=== PATIENT | female | born 1985 | race Caucasian/White ===

== ENCOUNTER 2016-12-13 11:40 | Emergency (ER) | payer OTHER ==
[~2016-12-13] VITALS: Ht 162.6 cm; Wt 52.5 kg
[2016-12-13 12:02] VITALS: Ht 162.6 cm; Wt 52.5 kg
[2016-12-13] MEDS ORDERED: ONDANSETRON (ODT) 4 MG TAB ODT STA (13:00)
[2016-12-13 13:31] LABS: URINE BLOOD (Dip) POC Negative (NEGATIVE)
[2016-12-13] MEDS ORDERED: ONDA4TAB8 PO (13:59)
--- NOTE | 2016-12-13 15:07 | ERD ---
ER Documentation Chief Complaint Date/Time DATE: 12/13/16 TIME: 15:06 Chief Complaint Complains of nausea and vomiting since today after Etoh use last night HPI 1-year-old female complaining of vomiting and nausea after drinking last night. Patient states she is 3 shots. Denies abdominal pain. Has not taken medication today for symptoms. Denies dizziness. Does not normally drink heavily. Denies change in urination or bowel movement. Does not feel dizzy or have headaches. Denies medical problems. NKDA. Social history denies. ROS All systems reviewed and are negative except as per history of present illness. Medications Home Meds Active Scripts Ondansetron Hcl* (Zofran*) 4 Mg Tablet, 4 MG PO Q6H for NAUSEA AND/OR VOMITING, #30 TAB Prov:JAYCE SANTANA PA-C 12/13/16 Allergies Allergies: Coded Allergies: No Known Drug Allergy (Verified Allergy, Unknown, 09/07/13) Physical Exam Vitals Vital Signs Date Time Temp Pulse Resp B/P Pulse Ox O2 Delivery O2 Flow Rate FiO2 12/13/16 12:02 98.7 74 20 113/79 98 Physical Exam GENERAL: The patient is well-appearing, well-nourished, in no acute distress HEENT: Atraumatic. Conjunctivae are pink. Pupils equal, round, and reactive to light. There is no scleral icterus. Tympanic membranes clear bilaterally. Oropharynx clear. No nystagmus or photophobia. NECK: C-spine is soft and supple. There is no meningismus. There is no cervical lymphadenopathy. CHEST: Clear to auscultation bilaterally. There are no rales, wheezes or rhonchi. HEART: Regular rate and rhythm. No murmurs, clicks, rubs or gallops. No S3 or S4. ABDOMEN:Soft, nontender and nondistended. Good bowel sounds. No rebound or guarding. No gross peritonitis. No gross organomegaly or masses. No Ornelas sign or McBurney point tenderness. BACK: No midline or flank tenderness. Results 24 hrs Laboratory Tests Test 12/13/16 13:38 Bedside Urine pH (LAB) 7.5 Bedside Urine Protein (LAB) 1+ Bedside Urine Glucose (UA) Negative Bedside Urine Ketones (LAB) Negative Bedside Urine Blood Negative Bedside Urine Nitrite (LAB) Negative Bedside Urine Leukocyte Esterase (L Negative Current Medications Medications (Trade) Dose Ordered Sig/Gricelda Route PRN Reason Start Time Stop Time Status Last Admin Dose Admin Ondansetron HCl (Zofran Odt) 4 mg ONCE STAT ODT 12/13/16 13:00 12/13/16 13:01 DC 12/13/16 13:30 Procedures/MDM ER Course: He was given Zofran in the ED and had p.o. challenge. Patient passed p.o. challenge. Patient's urine showed no signs of infection and test was negative. MDM: Low suspicion for dehydration. Patient's vital signs are stable and patient is tolerating p.o.'s in the ED. I have low suspicion for acute abdomen. Patient's abdominal exam is non-concerning. I feel the patient's vomiting is likely secondary to alcohol consumption yesterday. Patient is told to refrain from consuming more alcohol and recommended to drink water patient was told if symptoms change or worsen to return to the ER. All questions answered time of discharge. Patient understood and complied with plan Departure Diagnosis: Primary Impression: Nausea and vomiting Condition: Stable Patient Instructions: Nausea and Vomiting-Adult Referrals: SPEEDY MARINELLI MD (PCP) Additional Instructions: FOLLOW UP WITH YOUR PRIMARY CARE PHYSICIAN TOMORROW.Return to this facility if you are not improving as expected. JAYCE SANTANA PA-C Dec 13, 2016 15:07
== END 2016-12-13 14:26 | disposition home or self-care (01) ==
LOC: FTE 11:40
DX: R11.2 Nausea with vomiting, unspecified (principal)
CPT/HCPCS: 81003; Z7502; Z7610; 99283

== ENCOUNTER 2017-02-20 11:58 | Emergency (ER) | payer OTHER ==
[~2017-02-20] VITALS: Ht 157.5 cm; Wt 52.3 kg
[~2017-02-20 11:58] MED LIST: ONDA4TAB8 PO
[2017-02-20 12:01] VITALS: Ht 157.5 cm; Wt 52.3 kg
[2017-02-20] MEDS ORDERED: ONDANSETRON (ODT) 4 MG TAB ODT STA (12:39)
[2017-02-20 13:15] LABS: URINE BLOOD (Dip) POC 3+ (NEGATIVE)
[2017-02-20] MEDS ORDERED: METOCLOPRAMIDE 10 MG INJ IV STA (13:45)
[2017-02-20] MEDS ORDERED: SOD CHLORIDE 0.9% 1,000 ML IV STA (13:45)
[2017-02-20] MEDS ORDERED: LORAZEPAM 2 MG INJ IV ONE (14:30)
[2017-02-20 14:35] LABS: BASOPHIL # 0.1 10^3/ul (0.0-0.1); BASOPHILS % 0.5 % (0.0-2.0); EOSINOPHILS % 0.2 % (0.0-7.0); HEMOGLOBIN 12.5 g/dl (12.0-16.0); LYMPHOCYTES # 1.7 10^3/ul (0.8-2.9); LYMPHOCYTES % 15.3 % (15.0-51.0); MEAN CORPUSCULAR HGB CONC 33.8 g/dl (32.0-37.0); MEAN CORPUSCULAR VOLUME 91.8 fl (82.0-101.0); MEAN PLATELET VOLUME 9.9 fl (7.4-10.4); MONOCYTE # 0.5 10^3/ul (0.3-0.9); MONOCYTES % 4.8 % (0.0-11.0); NEUTROPHIL # 8.5 10^3/ul (1.6-7.5); NEUTROPHILS % 78.8 % (39.0-77.0); PLATELET COUNT 378 10^3/UL (140-415); RED BLOOD COUNT 4.03 10^6/ul (4.20-5.40); RED CELL DISTRIBUTION WIDTH 12.9 % (11.5-14.5); WHITE BLOOD COUNT 10.8 10^3/ul (4.8-10.8)
[2017-02-20 14:55] LABS: ALBUMIN 4.5 g/dl (3.3-4.9); ALBUMIN/GLOBULIN RATIO 1.5; BILIRUBIN,INDIRECT 0.2 mg/dl (0-1.1); BILIRUBIN,TOTAL 0.2 mg/dl (0.2-1.3); CALCIUM 9.4 mg/dl (8.4-10.2); CREATININE 0.58 mg/dl (0.44-1.00); POTASSIUM 4.1 mmol/L (3.5-5.1); TOTAL PROTEIN 7.5 g/dl (6.1-8.1)
[2017-02-20] MEDS ORDERED: ONDA8TAB14 PO (15:06)
--- NOTE | 2017-02-20 15:09 | ERD ---
ER Documentation Chief Complaint Chief Complaint nausea after drinking alcohol last night HPI This 31-year-old female presents with nausea vomiting since this morning. She believes she is having vomiting due to mixing alcoholic drinks last night. She 1 hard liquor and 1 1. She denies any fevers, diarrhea, urinary complaints. She has mild epigastric pain. Patient admits to smoking marijuana as well.Patient currently on her menstrual period. ROS All systems reviewed and are negative except as per history of present illness. Medications Home Meds Active Scripts Ondansetron (Ondansetron Odt) 8 Mg Tab.rapdis, 8 MG PO Q6H Y for NAUSEA AND/OR VOMITING, #6 TAB Prov:CITLALLI MCCONNELL MD 02/20/17 Ondansetron Hcl* (Zofran*) 4 Mg Tablet, 4 MG PO Q6H for NAUSEA AND/OR VOMITING, #30 TAB Prov:JAYCE SANTANA PA-C 12/13/16 Allergies Allergies: Coded Allergies: No Known Drug Allergy (Verified Allergy, Unknown, 09/07/13) PMhx/Soc Medical and Surgical Hx: pt denies Medical Hx, pt denies Surgical Hx Hx Alcohol Use: No Hx Substance Use: No Hx Tobacco Use: No Smoking Status: Never smoker Physical Exam Vitals Vital Signs Date Time Temp Pulse Resp B/P Pulse Ox O2 Delivery O2 Flow Rate FiO2 02/20/17 12:01 97.8 80 18 144/81 100 Physical Exam Alert, uncomfortable, not ill-appearing. Const: [] Head: Atraumatic Eyes: Normal Conjunctiva ENT: Normal External Ears, Nose and Mouth. Neck: Full range of motion..~ No meningismus. Resp: Clear to auscultation bilaterally Cardio: Regular rate and rhythm, no murmurs Abd: Soft, non tender, non distended. Normal bowel sounds Skin: No petechiae or rashes Back: No midline or flank tenderness Ext: No cyanosis, or edema Neur: Awake and alert Psych: Normal Mood and Affect Result Diagram: 02/20/17 1405 02/20/17 1405 Results 24 hrs Laboratory Tests Test 02/20/17 13:15 02/20/17 14:05 Bedside Urine pH (LAB) 8.5 Bedside Urine Protein (LAB) 2+ Bedside Urine Glucose (UA) Negative Bedside Urine Ketones (LAB) Trace Bedside Urine Blood 3+ Bedside Urine Nitrite (LAB) Negative Bedside Urine Leukocyte Esterase (L Negative White Blood Count 10.810^3/ul Red Blood Count 4.0310^6/ul Hemoglobin 12.5g/dl Hematocrit 37.0% Mean Corpuscular Volume 91.8fl Mean Corpuscular Hemoglobin 31.0pg Mean Corpuscular Hemoglobin Concent 33.8g/dl Red Cell Distribution Width 12.9% Platelet Count 04197^3/UL Mean Platelet Volume 9.9fl Neutrophils % 78.8% Lymphocytes % 15.3% Monocytes % 4.8% Eosinophils % 0.2% Basophils % 0.5% Nucleated Red Blood Cells % 0.0/100WBC Neutrophils # 8.510^3/ul Lymphocytes # 1.710^3/ul Monocytes # 0.510^3/ul Eosinophils # 0.010^3/ul Basophils # 0.110^3/ul Nucleated Red Blood Cells # 0.010^3/ul Sodium Level 141mmol/L Potassium Level 4.1mmol/L Chloride Level 103mmol/L Carbon Dioxide Level 23mmol/L Anion Gap 19 Blood Urea Nitrogen 10mg/dl Creatinine 0.58mg/dl Glucose Level 109mg/dl Calcium Level 9.4mg/dl Total Bilirubin 0.2mg/dl Direct Bilirubin 0.00mg/dl Indirect Bilirubin 0.2mg/dl Aspartate Amino Transf (AST/SGOT) 27IU/L Alanine Aminotransferase (ALT/SGPT) 39IU/L Alkaline Phosphatase 63IU/L Total Protein 7.5g/dl Albumin 4.5g/dl Globulin 3.00g/dl Albumin/Globulin Ratio 1.50 Lipase 44U/L Current Medications Medications (Trade) Dose Ordered Sig/Gricelda Route PRN Reason Start Time Stop Time Status Last Admin Dose Admin Ondansetron HCl 8 mg 8 mg ONCE STAT ODT 02/20/17 12:39 02/20/17 12:41 DC 02/20/17 13:17 Sodium Chloride (NS) 1,000 ml @ 1,000 mls/hr Q1H STAT IV 02/20/17 13:45 02/20/17 14:44 DC 02/20/17 14:04 Metoclopramide HCl (Reglan) 10 mg ONCE STAT IV 02/20/17 13:45 02/20/17 13:47 DC 02/20/17 14:04 Lorazepam (Ativan) 1 mg ONCE ONCE IV 02/20/17 14:30 02/20/17 14:31 DC 02/20/17 14:24 Procedures/MDM Urine shows no findings of acute infection and hCG is negative. There are 1+ ketones. Patient was initially given Zofran 8 mg by mouth. Patient had vomiting despite Zofran. IV was obtained. Patient was given 10 mg Reglan IV and had persistent vomiting. She was given Ativan 1 mg IV as well. She was given 1 L normal saline IV. CBC and CMP showed no acute abnormalities. Patient felt better after observation and treatment. Patient presents with nausea vomiting since drinking alcohol last night improved with observation treatment. Patient had a benign abdomen on serial exam. Patient has no current signs or symptoms of appendicitis, obstruction, acute abdomen. Patient was counseled regarding alcohol use and possible marijuana as cause of vomiting of uncertain etiology. She will treated with Zofran and further observation at home and return precautions. The patient was stable with no new complaints during the ER course. Clinically, there is no current evidence to suggest meningitis, sepsis, acute abdomen, pneumonia, acute coronary syndrome, pulmonary embolism, or any other emergent condition appearing to require further evaluation or hospitalization. The patient should certainly return for any new or worsening symptoms per the aftercare instructions. They should otherwise follow-up with her primary care doctor for reevaluation this week. Departure Diagnosis: Primary Impression: Nausea and vomiting Vomiting type: unspecified Vomiting Intractability: unspecified Qualified Code: R11.2 - Nausea and vomiting, intractability of vomiting not specified, unspecified vomiting type Condition: Stable Patient Instructions: Nausea and Vomiting-Adult Additional Instructions: May be early viral illness. Recheck for new or worsening symptoms or primary care doctor. CITLALLI MCCONNELL MD Feb 20, 2017 15:09
== END 2017-02-20 15:52 | disposition home or self-care (01) ==
LOC: FTE 11:58
DX: R11.2 Nausea with vomiting, unspecified (principal)
CPT/HCPCS: 36415; 80053; 81003; 83690; 85025; 96374; 96375; J2060; J2765; J7030; Z7502; Z7610

== ENCOUNTER 2017-12-19 13:04 | Emergency (ER) | END 2017-12-19 16:02 | disposition home or self-care (01) ==

== ENCOUNTER 2018-03-05 10:45 | Day surgery (SDC) | END 2018-03-05 14:16 | disposition home or self-care (01) ==

== ENCOUNTER 2018-04-13 12:44 | Day surgery (SDC) | payer OTHER ==
[2018-04-13] VITALS (14 sets, daily range): BP systolic 87–114; BP diastolic 40–68; PULSE 51–98; RESP 11–48; Ht 157.5 cm; Wt 53.7 kg
[~2018-04-13] VITALS: Ht 157.5 cm; Wt 53.7 kg
[~2018-04-13 12:44] MED LIST changes: +DESFLURANE 15 MIN ONE; +LACTATED RINGER'S 1,000 ML IV* ONE; -ONDA4TAB8 PO
[2018-04-13] MEDS ORDERED: STRONG IODINE 14 ML SOLUTION TOP ONE (13:19)
--- NOTE | 2018-04-13 13:24 | PREAC ---
Date/Time of Note Date/Time of Note DATE: 04/13/18 TIME: 13:23 Anesthesia Eval and Record Evaluation Time Pre-Procedure Interview DATE: 04/13/18 TIME: 13:23 Age 32 Sex female NPO: 8 hrs Preoperative diagnosis MILD CERVICAL DYSPLASIA Planned procedure COLD CONE BIOPSY Past Medical History Past Medical History: None Surgery & Anesthesia Issues No known issue Meds Anticoagulation: No Beta Antelmo within 24 hr: No Reason Beta Antelmo not given: Pt. not on B-Antelmo No Active Prescriptions or Reported Meds Current Medications Lactated Ringer's 1,000 ml @ 125 mls/hr Q8H ONCE IV* ; Start 04/13/18 at 06:00; Stop 04/13/18 at 13:59 Meds reviewed: Yes Allergies Coded Allergies: No Known Drug Allergy (Verified Allergy, Unknown, 04/13/18) Allergies Reviewed: Yes Labs/Studies Labs Reviewed: Reviewed by anesthesiologist Result Diagram: 04/13/18 1305 Laboratory Tests 04/13/18 13:05 test: Negative Studies: ECG (SR), CXR (N/A) Pre-procedure Exam Airway: Adequate mouth opening Mallampati: Mallampati I Teeth: Normal Lung: Normal Heart: Normal ASA Physical Status ASA physical status: 1 Emergency: None Planned Anesthetic General/MAC: LMA Planned Pain Management Parenteral pain med Pre-operative Attestations Prior to commencing anesthesia and surgery, the patient was re-evaluated, there was verification of: *The patient's identity *The results of appropriate recent lab work and preoperative vital signs *The above evaluation not changing prior to induction *Anesthetic plan, risk benefits, alternative and complications discussed with patient/family; questions answered; patient/family understands, accepts and wishes to proceed. MARIANELA MCKINNON MD Apr 13, 2018 13:24
[2018-04-13] MEDS ORDERED: MEPERIDINE 25 MG INJ IV PRN (13:30)
[2018-04-13] MEDS ORDERED: KETOROLAC 30 MG INJ IV PRN (13:30)
[2018-04-13] MEDS ORDERED: DIPHENHYDRAMINE 50 MG INJ IV PRN (13:30)
[2018-04-13] MEDS ORDERED: ONDANSETRON 4 MG INJ IV PRN (13:30)
[2018-04-13] MEDS ORDERED: OXYCODONE/ACETAMINOPHEN (5/325) TAB PO PRN ×2 (13:30)
[2018-04-13] MEDS ORDERED: HYDROmorphONE 1 MG/5 ML IV SYRINGE IV PRN ×3 (13:30)
[2018-04-13] MEDS ORDERED: MIDAZOLAM 1 MG/ML 2 ML INJ ONE (13:31)
[2018-04-13] MEDS ORDERED: PROPOFOL 20 ML ONE (13:32)
[2018-04-13] MEDS ORDERED: CEFAZOLIN 1 GM INJ ONE (13:32)
[2018-04-13] MEDS ORDERED: KETOROLAC 30 MG INJ ONE (13:33)
[2018-04-13] MEDS ORDERED: METOCLOPRAMIDE 10 MG INJ ONE (13:33)
[2018-04-13] MEDS ORDERED: ONDANSETRON 4 MG INJ ONE (13:33)
[2018-04-13] MEDS ORDERED: FENTAnyl 50 MCG/ML VIAL ONE (13:39)
--- NOTE | 2018-04-13 14:28 | SIPON ---
Date/Time of Note Date/Time of Note DATE: 04/13/18 TIME: 14:26 Operative Report Preoperative Diagnosis VIR[place]IA I Postoperative Diagnosis see path report Operation/Procedure Performed cold conization and ECC Surgeon see signature line rn first assistant MT Anesthesia: general Estimated blood loss: minimal Transfusion Required none Specimen cold cone of cervix endocerviccal curettage Grafts/Implants none Complications none AMOR ERAZO MD Apr 13, 2018 14:28
--- NOTE | 2018-04-13 14:29 | PD.PPDC ---
MASON APPRENTICE Discharge Instruction Diagnosis [id number] Final Diagnosis: [id number] [place] I Condition [id number] Patient Condition: Azadh6y Stable Diet [id number] Diet: Ieibu0e Resume Regular Diet Activity/Restrictions [id number] Activity: [id number] May Shower [id number] Restrictions: Bbdez1t No Sexual Activity Nothing in the Vagina No Hennessey No Tampons, douche Follow-up Follow-up with Physician: 4, Week/Weeks Return to clinic for [id number] [facility]ER[facility] Instructions: [id number] Fever greater than 101 Chills Worsening abdominal pain Excessive Vaginal Bleeding More than 2 pads per hour Unable to tolerate diet AMOR ERAZO MD Apr 13, 2018 14:29
--- NOTE | 2018-04-13 14:31 | NUR ---
PACU: Received patient in pacu via gurney s/p cold cone bx AAOX2 vss HOB @ semi gupta position breathing with ease, peripad dry denies pain , phone mother & given update, will continue to monitor.
--- NOTE | 2018-04-13 15:33 | NUR ---
PACU; Transferred patient to [facility] via [facility] AAOX4 AAOX4 vss HOB @ semi gupta position breathing with ease, peripad dry denies pain , report given to ZAIN Fountain
--- NOTE | 2018-04-13 18:22 | OPR ---
DATE OF OPERATION: 04/13/2018 PREOPERATIVE DIAGNOSIS: VIR[place]IA-1. POSTOPERATIVE DIAGNOSIS: See pathological report. OPERATION PERFORMED: Cold conization of the cervix and ECC. ANESTHESIA: General. ANESTHESIOLOGIST: Dr. Benton. ESTIMATED BLOOD LOSS: Minimal. PROCEDURE: Under the proper induction of general anesthesia, the patient was placed in dorsal lithot mel position. Perineal area and vagina wall was prepped and draped in usual aseptic manner. Pressur e inside the vagina gently irrigate. The bimanual examination revealed uterus normal size and consis tency. There was a palpable adnexal pathology. On inspection, external genitalia revealed no gross abnormality. Weighted speculum introduced, cervix identified which was multiparous appearing and ant erior lip of the cervix was grasped with a single tooth tenaculum at the 3 o'clock and 9 o'clock. He mostatic was placed using #1 chromic catgut and suture was left long and tagged with instruments. Th en, a circular incision was made on the cervix, starting from the lower lip in in circular fashion us ing 11 blade. The cone was removed. There was a little piece left on the left 5 o'clock direction, which was separately cut out and added to the conization of the cervix. Then, Sturmdorf suture was p laced in #1 chromic catgut starting with the lower lip and upper lip. Adequate hemostasis was secure d. Then, ECC prior to the Sturmdorf suture endocervical curettage was performed and send the specime n separately. Then, a Sturmdorf suture using 0 chromic catgut placed starting from the lower lip and upper lip, and the adequate hemostasis was secured. The piece of Surgicel was placed for the additi on of hemostatic purposes. A suture left long was cut and the patient withstood the procedure, and w as sent to the recovery room in stable condition. Sponge count taken which was correct. Dictated By: VERA CLIFFORD/ROLF Conf#: [id number] DID#: [id number]
--- NOTE | 2018-04-14 07:30 | PAC ---
Date/Time of Note Date/Time of Note DATE: 04/14/18 TIME: 07:29 Post-Anesthesia Notes Post-Anesthesia Note Last documented vital signs Vital Signs Date Temp Pulse Resp B/P (MAP) Pulse Ox O2 O2 Flow FiO2 Time Delivery Rate 04/13/18 97.1 59 18 87/49 (62) 100 Room Air 15:38 04/13/18 8.0 14:38 Activity: WNL Respiratory function: WNL Cardiovascular function: WNL Mental status: Baseline Pain reasonably controlled: Yes Hydration appropriate: Yes Nausea/Vomiting absent: No MARIANELA MCKINNON MD Apr 14, 2018 07:30
== END 2018-04-13 15:55 | disposition home or self-care (01) ==
LOC: SDS 12:44
PROVIDERS: ATTEND Obstetrics & Gynecology
DX: N72 Inflammatory disease of cervix uteri (principal)
CPT/HCPCS: 57520; 80053; 81003; 85025; 85610; 85730; 88305; 93005; J0690; J1885; J2175; J2250; J2405; J2765; J3010; Z7610